=== PATIENT | male | born 1955 | race Caucasian/White ===

== ENCOUNTER → 2016-07-03 | Outpatient (CLI) | payer OTHER ==
[2016-07-03 11:31] LABS: Basophils # (A) 0.1 k/uL (0-0.2); Basophils % (A) 2 %; CH 30.4; CHCM 33.5; Eosinophils # (A) 0.4 k/uL (0-0.7); Eosinophils % (A) 5 %; HCT 46.7 % (39.0-53.0); HDW 2.49; HGB 15.3 gm/dL (13.0-17.5); Luc # (Auto) 0.11; Luc % (Auto) 1; Lymphocytes % (A) 24 %; MCHC 32.9 g/dL (31.0-37.0); MCV 91.2 fL (80.0-100.0); Mean Platelet Volume 7.5; Monocytes # (A) 0.6 k/uL (0-1.0); Monocytes % (A) 7 %; Neutrophils % (A) 61 %; RBC 5.11 m/uL (4.30-5.90); RDW 12.6 % (11.5-15.5); WBC 8.2 k/uL (3.8-10.6); WBC (Perox) 8.48
[2016-07-03 11:56] LABS: ALT 50 U/L (21-72); AST 30 U/L (17-59); Alkaline Phosphatase 65 U/L (38-126); Anion Gap 12 mmol/L; Blood Urea Nitrogen 17 mg/dL (9-20); Calcium 9.7 mg/dL (8.4-10.2); Carbon Dioxide 30 mmol/L (22-30); Chloride 102 mmol/L (98-107); Cholesterol 147 mg/dL (<200); Glucose 94 mg/dL (74-99); HDL Cholesterol 44 mg/dL (40-60); Non-African American GFR(MDRD) >60 (>60 ml/min/1.73 sqM); Potassium 4.6 mmol/L (3.5-5.1); Sodium 144 mmol/L (137-145); Total Bilirubin 0.8 mg/dL (0.2-1.3); Total Protein 6.9 g/dL (6.3-8.2); Triglycerides 90 mg/dL (<150)
== END | disposition home or self-care (01) ==
LOC: LABWHC1 10:38
PROVIDERS: ATTEND Internal Medicine
DX: L10.1 Pemphigus vegetans (principal); E78.5 Hyperlipidemia, unspecified
CPT/HCPCS: 36415; 80053; 80061; 84439; 84443; 85025

== ENCOUNTER → 2017-08-22 | Outpatient (CLI) | payer OTHER ==
[2017-08-22 12:21] LABS: Basophils # (A) 0.1 k/uL (0-0.2); Basophils % (A) 1 %; Eosinophils # (A) 0.2 k/uL (0-0.7); Eosinophils % (A) 3 %; HGB 16.1 gm/dL (13.0-17.5); Lymphocytes # (A) 2.1 k/uL (1.0-4.8); Lymphocytes % (A) 26 %; MCH 30.4 pg (25.0-35.0); MCHC 33.6 g/dL (31.0-37.0); MCV 90.3 fL (80.0-100.0); Mean Platelet Volume 6.7; Monocytes # (A) 0.4 k/uL (0-1.0); Monocytes % (A) 5 %; Neutrophils # (A) 5.2 k/uL (1.3-7.7); Neutrophils % (A) 63 %; Platelet Count 271 k/uL (150-450); RBC 5.31 m/uL (4.30-5.90); RDW 12.6 % (11.5-15.5); WBC 8.3 k/uL (3.8-10.6)
[2017-08-22 12:29] LABS: ALT 43 U/L (21-72); AST 24 U/L (17-59); Albumin 4.3 g/dL (3.5-5.0); Alkaline Phosphatase 63 U/L (38-126); Anion Gap 9 mmol/L; Bilirubin, Delta 0.3 mg/dL (0.0-0.2); Bilirubin,Unconjugated 0.3 mg/dL (0.0-1.1); Blood Urea Nitrogen 16 mg/dL (9-20); Carbon Dioxide 32 mmol/L (22-30); Chloride 102 mmol/L (98-107); Cholesterol 158 mg/dL (<200); Glucose 92 mg/dL (74-99); HDL Cholesterol 50 mg/dL (40-60); LDL Cholesterol,Calculated 85 mg/dL (0-99); Potassium 4.5 mmol/L (3.5-5.1); Sodium 143 mmol/L (137-145); Total Bilirubin 0.6 mg/dL (0.2-1.3); Total Protein 6.8 g/dL (6.3-8.2); Triglycerides 114 mg/dL (<150)
[2017-08-22 12:46] LABS: T4, Free (Free Thyroxine) 0.78 ng/dL (0.78-2.19)
[2017-08-22 12:59] LABS: PSA Annual Screen 3.31 ng/mL (0.00-4.00)
== END | disposition home or self-care (01) ==
LOC: LABWHC1 11:31
PROVIDERS: ATTEND Internal Medicine
DX: E78.5 Hyperlipidemia, unspecified (principal); I10 Essential (primary) hypertension; J45.20 Mild intermittent asthma, uncomplicated
CPT/HCPCS: 84439; 80061; 80053; 82248; 85025; 82306; 36415; G0103

== ENCOUNTER → 2018-01-07 | Outpatient (CLI) | payer OTHER | END | disposition home or self-care (01) | LOC: LABWHC1 09:08 | PROVIDERS: ATTEND Urology | DX: R97.20 Elevated prostate specific antigen [PSA] (principal) | CPT/HCPCS: 36415; 84153 ==

== ENCOUNTER 2018-03-12 08:47 | Day surgery (SDC) | payer OTHER ==
[2018-03-11 08:27] VITALS: BMI 35.4
[~2018-03-12 08:47] MED LIST: LACTATED RINGERS 1,000 ML IV SCH; LIDOCAINE 1% 20 ML VIAL (10MG/ML) FOR IV START INTRADERMA PRN
[2018-03-12 09:32] VITALS: RESP 18; TEMP 97.7
[2018-03-12] MEDS ORDERED: fentaNYL (PF) 50 MCG/ML 2 ML AMP ONE (10:14)
[2018-03-12] MEDS ORDERED: PROPOFOL 10 MG/ML 20 ML VIAL IV ONE (10:14)
[2018-03-12] MEDS ORDERED: LIDOCAINE 1% INJ 10MG/ML (20 ML MDV) ONE (10:14)
--- NOTE | 2018-03-12 10:50 | P.PCN ---
Date of Procedure: 03/12/18 Procedure(s) Performed: Procedure: Colonoscopy and polypectomy. Preoperative diagnosis: Screening for neoplasia. Postoperative diagnosis: Small flat cecal polyp snared but no large polyps or cancer. Preparation: HalfLytely prep. Sedation: Was provided by anesthesia. Brief clinical history: The patient is a 62-year-old male who is scheduled for this evaluation for screening for neoplasia age being his risk factor. He had a prior exam more than 10 years ago. The patient has no abdominal complaints, bleeding or anemia. Procedure: With the patient on his left lateral decubitus position and after informed consent and adequate sedation, the perianal area was inspected and it did not show any fissures or fistulas. There were no masses felt on digital rectal examination. The Olympus CFQ 160L video colonoscope was then inserted in the rectum in the usual fashion and advanced to the cecum. There was a small flat polyp in the cecum which was snared and retrieved piecemeal with good hemostasis. There were no other polyps or tumors seen. Multiple diverticular orifices were seen scattered mostly on the left side with some around the hepatic flexure with no evidence of acute diverticulitis or strictures. I retroflexed the endoscope in the rectum before the endoscope was withdrawn. The patient tolerated the procedure well. Plan: The patient was reassured. Will await pathology results. I anticipate repeating this exam in 3-5 years. He will follow up with you as planned.
[2018-03-12 11:05] VITALS: BP 135/79; PULSE 57
== END 2018-03-12 11:31 | disposition home or self-care (01) ==
LOC: ORWHC2ENDO 08:47
DX: Z12.11 Encounter for screening for malignant neoplasm of colon (principal); D12.0 Benign neoplasm of cecum; K57.30 Diverticulosis of large intestine without perforation or abscess without bleeding; I10 Essential (primary) hypertension; E78.5 Hyperlipidemia, unspecified; Z79.82 Long term (current) use of aspirin; Z79.899 Other long term (current) drug therapy
CPT/HCPCS: 88305; 45385; J2001; J3010; J2704

== ENCOUNTER → 2018-09-20 | Outpatient (CLI) | payer OTHER ==
[2018-09-20 14:30] LABS: Basophils # (A) 0.1 k/uL (0-0.2); Basophils % (A) 1 %; Eosinophils # (A) 0.3 k/uL (0-0.7); Eosinophils % (A) 3 %; HCT 46.6 % (39.0-53.0); HGB 15.6 gm/dL (13.0-17.5); Lymphocytes # (A) 1.8 k/uL (1.0-4.8); Lymphocytes % (A) 22 %; MCHC 33.5 g/dL (31.0-37.0); MCV 89.7 fL (80.0-100.0); Mean Platelet Volume 7.2; Monocytes # (A) 0.6 k/uL (0-1.0); Monocytes % (A) 7 %; Neutrophils # (A) 5.1 k/uL (1.3-7.7); Neutrophils % (A) 64 %; Platelet Count 270 k/uL (150-450); RBC 5.19 m/uL (4.30-5.90)
[2018-09-20 18:29] LABS: Albumin 4.9 g/dL (3.80-4.90); Albumin/Globulin Ratio 2.58 (1.60-3.17); Anion Gap 4.1 mmol/L (4.00-12.00); Calcium 9.9 mg/dL (8.7-10.3); Carbon Dioxide 30.9 mmol/L (21.6-31.8); Globulin 1.9 g/dL (1.6-3.3); LDL Cholesterol,Calculated 81.4 mg/dL (0.0-131.0); Potassium 4.1 mmol/L (3.5-5.5); Total Bilirubin 0.8 mg/dL (0.3-1.2); Total Protein 6.8 g/dL (6.2-8.2); VLDL Calculation 19.6 mg/dL (5.00-40.00)
[2018-09-20 18:35] LABS: T4, Free (Free Thyroxine) 1.4 ng/dL (0.80-1.80)
== END | disposition home or self-care (01) ==
LOC: LABWHC1 13:17
PROVIDERS: ATTEND Internal Medicine
DX: Z00.00 Encounter for general adult medical examination without abnormal findings (principal); E55.9 Vitamin D deficiency, unspecified; E78.5 Hyperlipidemia, unspecified; Z12.5 Encounter for screening for malignant neoplasm of prostate
CPT/HCPCS: 84439; 80061; 80053; 84443; 85025; 36415; G0103

== ENCOUNTER → 2019-02-01 | Outpatient (CLI) | payer OTHER ==
--- NOTE | 2019-02-01 14:52 | CT ---
EXAMINATION TYPE: CT chest w con DATE OF EXAM: 02/01/2019 COMPARISON: None HISTORY: Follow up pneumonia, cough CT DLP: 565.6 mGycm Automated exposure control for dose reduction was used. CONTRAST: CT scan of the chest is performed with IV Contrast, patient injected with 100 mL of Isovue 300. FINDINGS: There is a reticular nodular peripheral infiltrate lateral aspect right upper lobe with calcification . There are multiple calcified mediastinal and right side bronchial lymph nodes. There is a 7 x 3.5 cm area of airspace consolidation and minimal cavitation in the posterior segment right lower lobe. There is no pleural effusion. There is no pericardial effusion. Heart size is david l. There is coronary artery calcification. There is no evidence of thoracic aortic aneurysm or dissec tion. There is slight loss of height of T9 and T11 vertebra consistent with osteoporosis. Upper abdom inal soft tissues appear intact. IMPRESSION: Cavitating infiltrate right lower lobe with calcification. Old granulomatous disease. Nicki ng findings more likely related to inflammatory disease. Follow-up recommended to show long-term stab ility or clearing.
== END | disposition home or self-care (01) ==
LOC: RADCTMAIN 13:41
PROVIDERS: ATTEND Internal Medicine
DX: J98.4 Other disorders of lung (principal); D71 Functional disorders of polymorphonuclear neutrophils; R91.8 Other nonspecific abnormal finding of lung field
CPT/HCPCS: 71260; Q9967

== ENCOUNTER → 2020-03-30 | Outpatient (CLI) | payer OTHER ==
[2020-03-30 16:19] LABS: Basophils # (A) 0.1 k/uL (0-0.2); Basophils % (A) 1 %; Eosinophils # (A) 0.4 k/uL (0-0.7); Eosinophils % (A) 3 %; HCT 49.2 % (39.0-53.0); HGB 16.1 gm/dL (13.0-17.5); Lymphocytes # (A) 2.7 k/uL (1.0-4.8); Lymphocytes % (A) 21 %; MCH 30.7 pg (25.0-35.0); MCHC 32.8 g/dL (31.0-37.0); MCV 93.5 fL (80.0-100.0); Mean Platelet Volume 6.8; Monocytes # (A) 0.5 k/uL (0-1.0); Monocytes % (A) 4 %; Neutrophils # (A) 8.9 k/uL (1.3-7.7); Neutrophils % (A) 69 %; Platelet Count 333 k/uL (150-450); RBC 5.26 m/uL (4.30-5.90); RDW 12.3 % (11.5-15.5); WBC 12.8 k/uL (3.8-10.6)
[2020-03-31 05:07] LABS: T4, Free (Free Thyroxine) 1.2 ng/dL (0.80-1.80)
[2020-03-31 05:22] LABS: African American GFR (CKD) 105.7 (60.0-200.0); Albumin/Globulin Ratio 2.63 (1.60-3.17); Anion Gap 15.4 mmol/L (4.00-12.00); BUN/Creat Ratio 12.22 Ratio (12.00-20.00); Carbon Dioxide 23.6 mmol/L (21.6-31.8); Chol/HDL Ratio 3.63; Globulin 1.9 g/dL (1.6-3.3); LDL Cholesterol,Calculated 63.8 mg/dL (0.0-131.0); Non-African American GFR(CKD) 91.2 (60.0-200.0); Potassium 4.5 mmol/L (3.5-5.5); Prostate Specific Antigen 7.8 ng/mL (0.0-4.5); Total Bilirubin 0.5 mg/dL (0.3-1.2); Total Protein 6.9 g/dL (6.2-8.2); VLDL Calculation 36.2 mg/dL (5.00-40.00)
== END | disposition home or self-care (01) ==
LOC: LABWHC1 14:41
PROVIDERS: ATTEND Internal Medicine
DX: Z00.00 Encounter for general adult medical examination without abnormal findings (principal)
CPT/HCPCS: 36415; 80053; 80061; 84153; 84439; 84443; 85025

== ENCOUNTER → 2020-05-17 | Outpatient (CLI) | payer OTHER | END | disposition home or self-care (01) | LOC: LABWHC1 12:51 | PROVIDERS: ATTEND Urology | DX: R97.20 Elevated prostate specific antigen [PSA] (principal) | CPT/HCPCS: 36415; 84153 ==

== ENCOUNTER → 2020-07-13 | Outpatient (CLI) | payer OTHER ==
--- NOTE | 2020-07-13 14:42 | MR ---
EXAMINATION TYPE: MR pelvis wo con DATE OF EXAM: 07/13/2020 COMPARISON: None. IMAGE QUALITY: Suboptimal but repeat not required. INDICATION: High PSA Level PSA: 7.7 ng/ml on May 17, 2020 Recent Biopsy and Date: March 21, 2018 Pathology Report (If Applicable): Benign TECHNIQUE: Examination was performed using a 3T MRI without an endorectal coil. Multiparametric imaging was perf ormed with T2 mutliplanar sequences, axial diffusion weighted imaging and dynamic contrast enhanced i maging, utilizing 11 mL intravenous Gadavist gadolinium contrast. FINDINGS: Examination is suboptimal as patient unable to complete entire MRI sequence for prostate ev aluation. Incomplete diffusion along with postcontrast imaging. There is no clinically significant cancer identified. PROSTATE VOLUME: 5.2 cm SI x 5.0 cm AP x 6.1 cm LR Vol= 83.0 cc PSA DENSITY: 0.093 ng/ml/cc Predicted PSA equals 9.96 Some indistinct hypointense areas in the peripheral zone right prostatic lobe more medial aspect from base to apex. No areas of mild to moderate hypointensity or obvious restricted diffusion. Asymmetric increased prominence of the left peripheral zone diffusely greatest mid zone aspect. Transitional zone shows heterogeneity with single encapsulated 1.4 cm nodule left apex image 13. No s uspicious regions of more prominent low T2 signal. Prostate capsule intact. Seminal vesicles within normal limits. No adjacent adenopathy. Mild to moderate trabeculation and mild wall thickening in the poorly distended bladder. No suspiciou s bowel dilatation. Moderate-sized fat-containing left inguinal hernia. Visualized osseous structures are intact. IMPRESSION: Suboptimal study. Markedly enlarged prostate consistent with BPH. A focus of clinically significant cancer is not identified. Highest Assessment Category: 2 MRI Stage: T0 N0 M0 based on review of pelvic images. False negative rates for MRI range from 5-20% depending on risk profile. Assessment Categories: 1 Very low (clinically significant cancer is highly unlikely to be present) 2 Low (clinically significant cancer is unlikely to be present) 3 Intermediate (the presence of clinically significant cancer is equivocal) 4 High (clinically significant cancer is likely to be present) 5 Very high (clinically significant cancer is highly likely to be present) Locations: PZ = peripheral zone; TZ = transition zone CZ=central zone; AFS = anterior fibromuscular stroma a=anterior half (i.e. PZa=anterior half of peripheral zone); pm= posterior medial (i.e PZpm) pl = postero-lateral (i.e. PZpl); p = posterior half (i.e. TZp) ; a = anterior half (i.e TZa or P Za) Other: N=no or no; E= equivocal; Y=yes EPE = extraprostatic extension NVB = neurovascular bundle NA = not applicable/not available
== END | disposition home or self-care (01) ==
LOC: RADMRIMAIN 11:46
PROVIDERS: ATTEND Urology
DX: N40.0 Benign prostatic hyperplasia without lower urinary tract symptoms (principal)
CPT/HCPCS: 72195

== ENCOUNTER → 2020-09-28 | Outpatient (CLI) | payer OTHER | END | disposition home or self-care (01) | LOC: LABWHC1 12:36 | PROVIDERS: ATTEND Urology | DX: R97.20 Elevated prostate specific antigen [PSA] (principal) | CPT/HCPCS: 36415; 84153 ==

== ENCOUNTER → 2021-03-16 | Outpatient (CLI) | payer OTHER | END | disposition home or self-care (01) | LOC: LABWHC1 12:00 | PROVIDERS: ATTEND Urology | DX: R97.20 Elevated prostate specific antigen [PSA] (principal) | CPT/HCPCS: 36415; 84153 ==

== ENCOUNTER → 2021-05-25 | Outpatient (CLI) | payer OTHER ==
[2021-05-25 19:08] LABS: Basophils # (A) 0.04 X 10*3/uL (0.00-0.10); Basophils % (A) 0.6 %; Eosinophils # (A) 0.55 X 10*3/uL (0.04-0.35); HCT 48.1 % (39.6-50.0); HGB 15.4 g/dL (13.0-17.0); Lymphocytes # (A) 1.94 X 10*3/uL (0.90-5.00); Lymphocytes % (A) 28.1 %; MCH 30.1 pg (27.0-32.0); MCV 93.9 fL (80.0-97.0); Mean Platelet Volume 9.9 fL (9.5-12.2); Monocytes # (A) 0.85 X 10*3/uL (0.20-1.00); Monocytes % (A) 12.3 %; Neutrophils % (A) 50.6 %; Platelet Count 241 X 10*3/uL (140-440); RBC 5.12 X 10*6/uL (4.40-5.60); RDW 12.5 % (11.5-14.5); WBC 6.91 X 10*3/uL (4.50-10.00)
[2021-05-25 20:49] LABS: ALT 32 U/L (10-49); AST 22 U/L (14-35); African American GFR (CKD) 92.4 (60.0-200.0); Albumin 4.7 g/dL (3.8-4.9); Albumin/Globulin Ratio 2.14 (1.60-3.17); Alkaline Phosphatase 82 U/L (41-126); Calcium 9.8 mg/dL (8.7-10.3); Carbon Dioxide 25.8 mmol/L (20.0-27.5); Chloride 101 mmol/L (96-109); Chol/HDL Ratio 4.09 Ratio; Globulin 2.2 g/dL (1.6-3.3); Glucose 88 mg/dL (70-110); LDL Cholesterol,Calculated 81.8 mg/dL (0.0-131.0); Non-African American GFR(CKD) 79.7 (60.0-200.0); Potassium 3.8 mmol/L (3.5-5.5); Sodium 140 mmol/L (135-145); Total Protein 6.9 g/dL (6.2-8.2)
== END | disposition home or self-care (01) ==
LOC: LABWHC1 11:21
PROVIDERS: ATTEND Internal Medicine
DX: Z00.00 Encounter for general adult medical examination without abnormal findings (principal); J45.20 Mild intermittent asthma, uncomplicated; E78.5 Hyperlipidemia, unspecified; I10 Essential (primary) hypertension
CPT/HCPCS: 84439; 80061; 80053; 84443; 85025; 36415; G0103

== ENCOUNTER → 2021-11-10 | Outpatient (CLI) | payer OTHER | END | disposition home or self-care (01) | LOC: LABWHC1 10:38 | PROVIDERS: ATTEND Urology | DX: R97.20 Elevated prostate specific antigen [PSA] (principal) | CPT/HCPCS: 36415; 84153 ==

== ENCOUNTER 2021-11-24 08:54 | Day surgery (SDC) | payer OTHER ==
[2021-11-23 08:27] VITALS: BMI 34.1
[2021-11-24] MEDS ORDERED: LACTATED RINGERS 1,000 ML IV SCH (09:09)
[2021-11-24] MEDS ORDERED: LIDOCAINE 1% (10MG/ML) FOR IV START INTRADERMA ONE (09:15)
[2021-11-24 09:16] VITALS: TEMP 98.2
[2021-11-24] MEDS ORDERED: PROPOFOL 10 MG/ML 20 ML VIAL IV ONE (09:42)
--- NOTE | 2021-11-24 09:44 | P.GSHP ---
History of Present Illness H&P Date: 11/24/21 Chief Complaint: History of colon polyps This a 66-year-old male with previous history of colon polyps. Patient presents today for colonoscopy. Past Medical History Past Medical History: Hyperlipidemia, Hypertension, Prostate Disorder Additional Past Medical History / Comment(s): psa elevated History of Any Multi-Drug Resistant Organisms: None Reported Past Surgical History: Hernia Repair, Orthopedic Surgery Additional Past Surgical History / Comment(s): RIGHT AND LEFT KNEE ARTHROSCOPIC , INGUINAL HERNIA REPAIR BILATERAL , prostate biopsy, partial rt lower lung lobectomy Past Anesthesia/Blood Transfusion Reactions: No Reported Reaction Smoking Status: Never smoker - Past Family History Mother Family Medical History: Cancer Additional Family Medical History / Comment(s): ovarian Medications and Allergies Home Medications Medication Instructions Recorded Confirmed Type Atorvastatin [Lipitor] 20 mg PO DAILY 03/11/18 11/23/21 History Lisinopril-Hctz 20-12.5 mg 1 tab PO DAILY 03/11/18 11/23/21 History [Zestoretic 20-12.5] Multivitamins, Thera [Multivitamin 1 tab PO DAILY 03/11/18 11/23/21 History (formulary)] Zinc 50 mg PO DAILY 11/23/21 11/23/21 History Allergies Allergy/AdvReac Type Severity Reaction Status Date / Time No Known Allergies Allergy Verified 11/23/21 08:16 Surgical - Exam Vital Signs Temp Pulse Resp BP Pulse Ox 98.2 F 70 16 159/91 97 11/24/21 09:14 11/24/21 09:14 11/24/21 09:14 11/24/21 09:14 11/24/21 09:14 - General well developed, well nourished, no distress - Eyes PERRL - ENT normal pinna - Neck no masses - Respiratory normal expansion - Cardiovascular Rhythm: regular - Abdomen Abdomen: soft, non tender Assessment and Plan Assessment: History of colon polyps. We'll perform colonoscopy.
--- NOTE | 2021-11-24 09:58 | P.OP ---
Date of Procedure: 11/24/21 Preoperative Diagnosis: Screening colonoscopy History of colon polyps Postoperative Diagnosis: Diverticulosis Procedure(s) Performed: Colonoscopy Anesthesia: MAC Surgeon: Rik Guzman Pathology: none sent Condition: stable Disposition: PACU Description of Procedure: The patient's placed on the endoscopy table in the lateral position. He received IV sedation. Digital rectal exam was performed which revealed no ebonized. Flexible colonoscope was then placed patient anus passed throughout the entire colon. The ileocecal valve was visualized. Cecum, ascending and transverse colon appeared normal. In the descending and sigmoid colon there was moderate diverticular changes. The scope was then brought back the rectum this appeared normal. Scope withdrawn for patient.
[2021-11-24 10:15] VITALS: BP 127/65; PULSE 59; RESP 17
== END 2021-11-24 10:33 | disposition home or self-care (01) ==
LOC: ORWHC2ENDO 08:54
PROVIDERS: ATTEND Surgery
DX: Z12.11 Encounter for screening for malignant neoplasm of colon (principal); K57.30 Diverticulosis of large intestine without perforation or abscess without bleeding; Z86.010 Personal history of colon polyps; E78.5 Hyperlipidemia, unspecified; I10 Essential (primary) hypertension; R97.20 Elevated prostate specific antigen [PSA]; Z90.2 Acquired absence of lung [part of]; Z98.890 Other specified postprocedural states; Z80.41 Family history of malignant neoplasm of ovary; Z79.899 Other long term (current) drug therapy
CPT/HCPCS: J2704; G0105

== ENCOUNTER → 2022-05-17 | Outpatient (CLI) | payer OTHER | END | disposition home or self-care (01) | LOC: LABWHC1 10:47 | PROVIDERS: ATTEND Urology | DX: R97.20 Elevated prostate specific antigen [PSA] (principal) | CPT/HCPCS: 36415; 84153 ==

== ENCOUNTER → 2022-05-26 | Outpatient (CLI) | payer OTHER ==
[2022-05-26 19:18] LABS: ALT 31 U/L (10-49); AST 27 U/L (14-35); African American GFR (CKD) 104.2 (60.0-200.0); Albumin 4.8 g/dL (3.8-4.9); Albumin/Globulin Ratio 2.09 (1.60-3.17); Alkaline Phosphatase 77 U/L (41-126); Blood Urea Nitrogen 12.6 mg/dL (9.0-27.0); Calcium 9.9 mg/dL (8.7-10.3); Carbon Dioxide 26.4 mmol/L (20.0-27.5); Chloride 103 mmol/L (96-109); Chol/HDL Ratio 3.15 Ratio; Globulin 2.3 g/dL (1.6-3.3); Glucose 93 mg/dL (70-110); LDL Cholesterol,Calculated 73.4 mg/dL (0.0-131.0); Non-African American GFR(CKD) 89.9 (60.0-200.0); Potassium 4.3 mmol/L (3.5-5.5); Sodium 141 mmol/L (135-145); Total Protein 7.1 g/dL (6.2-8.2)
[2022-05-26 20:10] LABS: Basophils # (A) 0.08 X 10*3/uL (0.00-0.10); Eosinophils % (A) 4.9 %; HCT 48.3 % (39.6-50.0); HGB 15.8 g/dL (13.0-17.0); Immature Grans, Automated 0.5 %; Lymphocytes % (A) 26.7 %; MCH 30.6 pg (27.0-32.0); MCHC 32.7 g/dL (32.0-37.0); MCV 93.6 fL (80.0-97.0); Mean Platelet Volume 10.1 fL (9.5-12.2); Monocytes % (A) 8.5 %; NRBC Per 100 WBC 0 /100 WBCS (0.0-0.0); Neutrophils # (A) 4.82 X 10*3/uL (1.80-7.70); Neutrophils % (A) 58.4 %; Platelet Count 278 X 10*3/uL (140-440); RBC 5.16 X 10*6/uL (4.40-5.60); RDW 12.6 % (11.5-14.5); WBC 8.24 X 10*3/uL (4.50-10.00)
== END | disposition home or self-care (01) ==
LOC: LABWHC1 12:07
PROVIDERS: ATTEND Internal Medicine
DX: I10 Essential (primary) hypertension (principal); E78.3 Hyperchylomicronemia; E78.5 Hyperlipidemia, unspecified
CPT/HCPCS: 36415; 80053; 80061; 84439; 84443; 85025

== ENCOUNTER 2022-11-08 23:51 | Emergency (ER) | payer OTHER ==
[2022-11-09 00:08] VITALS: BP 136/82; PULSE 79; RESP 18; TEMP 98.2
[2022-11-09] MEDS ORDERED: CEPHALEXIN 500 MG CAP PO STA (01:52)
[2022-11-09] MEDS ORDERED: DIPH,PERTUS(ACELL)TETVAC-LF 0.5 ML VIAL IM ONE (01:52)
[2022-11-09] MEDS ORDERED: BACITRACIN OINT 1 EACH PACKET TOPICAL ONE (01:55)
--- NOTE | 2022-11-09 02:00 | ED ---
Skin/Abscess/FB HPI - General Chief complaint: Skin/Abscess/Foreign Body Stated complaint: Spider Bite Time Seen by Provider: 11/09/22 01:39 Source: patient, family (), RN notes reviewed, old records reviewed Mode of arrival: ambulatory Limitations: no limitations - History of Present Illness Initial comments: Nontoxic-appearing 67-year-old male presents to the emergency room with his complaining of a possible insect bite behind his right knee that he sustained Sunday night while sleeping. Patient did not see an insect. Over the past fe w days he's had increased swelling and tenderness. His because it this morning and prompted him to come to the emergency room. Denies any other bites or rashes. Unsure of his tetanus shot is up-to-date. History of hypertension. MD complaint: insect bite/sting -: days(s) (5) Tetanus Up to Date: no Location: RLE (posterior knee) Severity scale (1-10): 1 Context: recent camping ([place]) Associated symptoms: denies other symptoms Treatments Prior to Arrival: none - Related Data Home Medications Medication Instructions Recorded Confirmed Atorvastatin [Lipitor] 20 mg PO DAILY 03/11/18 11/23/21 Lisinopril-Hctz 20-12.5 mg 1 tab PO DAILY 03/11/18 11/23/21 [Zestoretic 20-12.5] Multivitamins, Thera [Multivitamin 1 tab PO DAILY 03/11/18 11/23/21 (formulary)] Zinc 50 mg PO DAILY 11/23/21 11/23/21 Previous Rx's Medication Instructions Recorded Cephalexin [Keflex] 500 mg PO Q6HR #40 cap 11/09/22 Allergies Allergy/AdvReac Type Severity Reaction Status Date / Time No Known Allergies Allergy Verified 11/09/22 00:07 Review of Systems ROS Statement: Those systems with pertinent positive or pertinent negative responses have been documented in the HPI. ROS Other: All systems not noted in ROS Statement are negative. Past Medical History Past Medical History: Hyperlipidemia, Hypertension Additional Past Medical History / Comment(s): psa elevated History of Any Multi-Drug Resistant Organisms: None Reported Past Surgical History: Hernia Repair Additional Past Surgical History / Comment(s): RIGHT AND LEFT KNEE ARTHROSCOPIC , INGUINAL HERNIA REPAIR BILATERAL Past Anesthesia/Blood Transfusion Reactions: No Reported Reaction Past Psychological History: No Psychological Hx Reported Smoking Status: Never smoker Past Alcohol Use History: Occasional Past Drug Use History: None Reported - Past Family History Mother Family Medical History: Cancer Additional Family Medical History / Comment(s): ovarian General Exam Limitations: no limitations General appearance: alert, in no apparent distress Head exam: Present: atraumatic Eye exam: Present: normal appearance. Absent: scleral icterus, conjunctival injection, periorbital swelling ENT exam: Present: mucous membranes moist Neck exam: Absent: meningismus Respiratory exam: Absent: respiratory distress, accessory muscle use Cardiovascular Exam: Present: regular rate Extremities exam: Present: full ROM, normal capillary refill. Absent: pedal edema, calf tenderness Neurological exam: Present: alert, oriented X3, normal gait Psychiatric exam: Present: normal affect, normal mood Skin exam: Present: warm, dry, normal color, other (lesion approx 2cm right popliteal fossa with surrounding erythema approximately 7 cm x 3 cm). Absent: cyanosis, diaphoretic, petechiae, pallor Course Vital Signs 11/09/22 00:07 Temperature 98.2 F Pulse Rate 79 Respiratory 18 Rate Blood Pressure 136/82 O2 Sat by Pulse 96 Oximetry Medical Decision Making - Medical Decision Making Was pt. sent in by a medical professional or institution (, PA, SCRIPT WRITER, urgent care, hospital, or residential...) When possible be specific @ -No Did you speak to anyone other than the patient for history (EMS, parent, family, police, friend...)? What history was obtained from this source @ -No Did you review nursing and triage notes (agree or disagree)? Why? @ -I reviewed and agree with nursing and triage notes Were old charts reviewed (outside hosp., previous admission, EMS record, old EKG, old radiological studies, urgent care reports/EKG's, residential records)? Report findings @ -No old charts were reviewed Differential Diagnosis (chest pain, altered mental status, abdominal pain women, abdominal pain men, vaginal bleeding, weakness, fever, dyspnea, syncope, headache, dizziness, GI bleed, back pain, seizure, CVA, palpatations, mental health, musculoskeletal)? @ -Cellulitis, abscess, laceration, abrasion EKG interpreted by me (3pts min.). @ -n/a X-rays interpreted by me (1pt min.). @ -None done CT interpreted by me (1pt min.). @ -None done U/S interpreted by me (1pt. min.). @ -None done What testing was considered but not performed or refused? (CT, X-rays, U/S, labs)? Why? @ -None What meds were considered but not given or refused? Why? @ -None Did you discuss the management of the patient with other professionals (professionals i.e. DrMigue, PA, SCRIPT WRITER, lab, RT, psych nurse, social research assistant, it systems administrator, teacher, parking enforcement officer, insurance case manager)? Give summary @ -No Was smoking cessation discussed for >3mins.? @ -No Was critical care preformed (if so, how long)? @ -No Were there social determinants of health that impacted care today? How? (Homelessness, low income, unemployed, alcoholism, drug addiction, transportation, low edu. Level, literacy, decrease access to med. care, [facility], rehab)? @ -No Was there de-escalation of care discussed even if they declined (Discuss DNR or withdrawal of care, Hospice)? DNR status @ -No What co-morbidities impacted this encounter? (DM, HTN, Smoking, COPD, CAD, Cancer, CVA, ARF, Chemo, Hep., AIDS, mental health diagnosis, sleep apnea, morbid obesity)? @ -Hyperlipidemia, hypertension Was patient admitted / discharged? Hospital course, mention meds given and route, prescriptions, significant lab abnormalities, going to OR and other pertinent info. @ -Discharged Nontoxic-appearing 67-year-old male presents ambulatory with his complaining of a possible insect bite behind his right knee that he sustained Sunday night while sleeping in [place]. Patient did not see an insect. Over the past few days he's had increased swelling and tenderness. Denies any fevers. Wound culture was obtained. Wound with surrounding erythema was outlined with skin marker and patient and were advised to return with any spreading of the redness. Patient tetanus shot was updated this visit. He was given a dose of Keflex. Bacitracin dressing was applied. He was prescribed Keflex and directed to place bacitracin ointment once a day and lesion. Directed to return to the emergency room with any increased swelling or fevers. Follow-up with his primary care doctor on Sunday. Patient are agreeable to this plan of care. Case discussed with Dr. Eid Undiagnosed new problem with uncertain prognosis? @ -No Drug Therapy requiring intensive monitoring for toxicity (Heparin, Nitro, Insulin, Cardizem)? @ -No Were any procedures done? @ -No Diagnosis/symptom? @ -Cellulitis Acute, or Chronic, or Acute on Chronic? @ -Acute Uncomplicated (without systemic symptoms) or Complicated (systemic symptoms)? @ -Uncomplicated Side effects of treatment? @ -No Exacerbation, Progression, or Severe Exacerbation? @ -No Poses a threat to life or bodily function? How? (Chest pain, USA, CT, pneumonia, PE, COPD, DKA, ARF, appy, cholecystitis, CVA, Diverticulitis, Homicidal, Suicidal, threat to staff... and all critical care pts) @ -No Disposition Clinical Impression: Cellulitis of leg, right Disposition: HOME SELF-CARE Condition: Good Additional Instructions: If the redness spreads past the outlined marker and or you develop a fever, return to the emergency room. Take antibiotics as prescribed. Follow-up with your primary care doctor Sunday. Prescriptions: Cephalexin [Keflex] 500 mg PO Q6HR #40 cap Is patient prescribed a controlled substance at d/c from ED?: No Referrals: Eleanor Mtz MD [Primary Care Provider] - 1-2 days Time of Disposition: 01:59
== END 2022-11-09 02:27 | disposition home or self-care (01) ==
LOC: EC 23:51
DX: L03.115 Cellulitis of right lower limb (principal); I10 Essential (primary) hypertension; E78.5 Hyperlipidemia, unspecified; Z79.899 Other long term (current) drug therapy; W57.XXXA Bitten or stung by nonvenomous insect and other nonvenomous arthropods, initial encounter
CPT/HCPCS: 87070; 87077; 87186; 87205; 90715; 99283

== ENCOUNTER → 2023-03-14 | Outpatient (CLI) | payer MEDICARE, OTHER | END | disposition home or self-care (01) | LOC: LABWHC1 12:09 | PROVIDERS: ATTEND Urology | DX: R97.20 Elevated prostate specific antigen [PSA] (principal) | CPT/HCPCS: 36415; 84153 ==

== ENCOUNTER → 2023-06-07 | Outpatient (CLI) | payer MEDICARE, OTHER ==
--- NOTE | 2023-06-08 09:36 | XR ---
EXAMINATION TYPE: XR chest 2V, XR ribs LT DATE OF EXAM: 06/07/2023 5:47 PM CLINICAL INDICATION:Male, 67 years old with history of R07.9; COMPARISON: Chest radiographs from 03/30/2022. TECHNIQUE: XR chest 2V, XR ribs LT Frontal and lateral views of the chest. The ribs are evaluated in frontal and oblique views. FINDINGS: Lungs/Pleura: There is flattening of the diaphragm with increased lucency of the lungs. No evidence o f pneumothorax, pleural effusion or focal consolidation. Pulmonary vascularity: Unremarkable. Heart/mediastinum: Cardiomediastinal silhouette is unremarkable. Musculoskeletal: No acute osseous pathology. Suboptimal visualization of the ribs secondary to overla pping tissues. No obvious displaced fracture visualized. IMPRESSION: 1. No acute cardiopulmonary disease/process. 2. COPD changes. 3. Limited evaluation due to patient body habitus. No obvious displaced fracture. Consider CT if the re remains concern.
== END | disposition home or self-care (01) ==
LOC: RADXRMAIN 17:32
PROVIDERS: ATTEND Family Medicine
DX: J44.9 Chronic obstructive pulmonary disease, unspecified (principal); R07.9 Chest pain, unspecified; R07.81 Pleurodynia
CPT/HCPCS: 71046

== ENCOUNTER → 2023-08-09 | Outpatient (CLI) | payer MEDICARE, OTHER ==
[2023-08-09 16:08] LABS: ALT 35 U/L (10-49); AST 22 U/L (14-35); Albumin 4.8 g/dL (3.8-4.9); Albumin/Globulin Ratio 2.18 Ratio (1.60-3.17); Alkaline Phosphatase 91 U/L (41-126); BUN/Creat Ratio 12.78 Ratio (12.00-20.00); Blood Urea Nitrogen 11.5 mg/dL (9.0-27.0); Calcium 10.5 mg/dL (8.7-10.3); Carbon Dioxide 27.4 mmol/L (21.6-31.8); Chloride 102 mmol/L (96-109); Chol/HDL Ratio 3.34 Ratio; Globulin 2.2 g/dL (1.6-3.3); Glucose 99 mg/dL (70-110); LDL Cholesterol,Calculated 74.8 mg/dL (0.0-131.0); Potassium 4.5 mmol/L (3.5-5.5); Sodium 142 mmol/L (135-145); Total Bilirubin 0.5 mg/dL (0.3-1.2)
== END | disposition home or self-care (01) ==
LOC: LABWHC1 09:42
PROVIDERS: ATTEND Internal Medicine Interventional Cardiology
DX: E78.2 Mixed hyperlipidemia (principal)
CPT/HCPCS: 36415; 80053; 80061

== ENCOUNTER → 2023-12-20 | Outpatient (CLI) | payer MEDICARE, OTHER | END | disposition home or self-care (01) | LOC: LABWHC1 12:46 | PROVIDERS: ATTEND Urology | DX: R97.20 Elevated prostate specific antigen [PSA] (principal) | CPT/HCPCS: 36415; 84153 ==

== ENCOUNTER → 2024-01-30 | Outpatient (CLI) | payer MEDICARE ==
--- NOTE | 2024-02-19 14:48 | P.PCN ---
Date of Procedure: 01/30/24 Operative Findings: Home sleep study report Date of service is 01/30/2024 Pertinent history This is a 68-year-old male patient who was referred to me for sleep apnea evaluation. The patient has chronic loud snoring and he is suffering from chronic fatigue and limited sleepiness with an [place] score of 3. He has Mallampati class IV with posterior is obese and suffers from hypertension hyperlipidemia. He is retired from [employer]. He is currently living in [place]. He is a non-smoker. Pertinent physical findings The patient's weight is 224 pounds with a body mass index of 34.1 Technical description The Angio[employer] ApneaLink system was used to complete his home sleep study. This is a type III home sleep study evaluation. The total recording duration was 7 hours and 32 minutes. The study started at 11:42 PM and ended at 7:15 AM. There was a total of 7 hours and 22 minutes of flow monitoring and 7 hours and 19 minutes of oxygen saturation monitoring and this was an adequate study Results Respiratory analysis showed a total of 15 obstructive apneas and 148 obstructive hypopneas. No central apneas were recorded and the patient's AHI was reported to be at 22.1, slightly worsened in supine body position Oxygenation analysis The patient's baseline pulse ox on room air while at rest is 95%. Average pulse ox during sleep was 92% with a minimum pulse ox of 85% during sleep. The patient spent approximately 12 minutes of sleep time below pulse ox of 89% Cardiac summary Average heart is was 63 with a minimum heart rate of 51 and a maximum heart of 89. Assessment Obstructive sleep apnea, moderate in severity with an AHI of 22, limited oxygen desaturation with a minimum pulse ox of 85% Chronic fatigue and limited sleepiness with an [place] score of 3 Hypertension Hyperlipidemia Obesity with a BMI of 34.1 Plan Will discuss findings with the patient. Obviously, in the setting of a moderate to severe obstructive sleep apnea, CPAP therapy is recommended. With supportive treatment for now and we asked the patient to come in sleep center to undergo a CPAP titration regarding further treatment of his MICKEY. Encourage weight loss. Continue cardiovascular comorbidities. Encourage maintaining a regular sleep schedule and good sleep hygiene measures. Will continue to follow.
== END ==
LOC: 3 N SLEEP 11:00
PROVIDERS: ATTEND Internal Medicine Critical Care Medicine

== ENCOUNTER 2024-02-19 19:48 | Outpatient (CLI) | payer MEDICARE, OTHER ==
--- NOTE | 2024-04-01 09:20 | P.PCN ---
Date of Procedure: 02/19/24 Operative Findings: CPAP titration report Date of service is 02/19/2024 Pertinent history This patient was diagnosed having obstructive sleep apnea, moderate in severity with an AHI of 22 with the lowest pulse ox of 85%. The patient has chronic fatigue and limited sleepiness with an Griffin score of 3. He has hypertension hyperlipidemia and she is undergoing a CPAP titration study. Pertinent physical findings Height is 5 feet and 8 inches with a weight of 225 and a body mass index of 34.2 Technical description The patient was studied using a standard complex polysomnography protocol that included recording of the Lead II EKG, Central, occipital and frontal EEG, right and left outer canthus EOG, submental EMG, right and left anterior tibialis EMG, respiratory airflow by thermocouple and or pressure/flow transducer, respiratory efforts by abdominal and thoracic PVDF belts, oxygen saturation by cable oximetry. Position by observation synchronized the PSG. Equipment used: [employer]. Stepwise CPAP titration was done to the mid all obstructive respiratory events Sleep architecture The total recording duration was 391.5 minutes. The total sleep time was 2 4.5 minutes. The wake after sleep onset time was 121.0 minutes. Overall sleep efficiency was 52.2%. Latency to sleep onset was 72 minutes and latency to REM sleep was 216.0 minutes. The sleep architecture was characterized by 7.6% stage I, 90% stage II, 0% stage III, and a total of 5.9% REM sleep. The total arousal index was 3.2 Respiratory summary The patient was started on CPAP therapy, initially at a pressure of 7 cm of water and the pressure was gradually creased by increments of 1 cm to reach a maximum CPAP pressure of 10 cm of water. This was successful titration. There was completed ablation of the obstructive respiratory events at the very CPAP pressures utilized. Noted the patient was studied and supine and nonsupine body position. The patient encountered only brief REM sleep. Based on this, the patient will be given an APAP machine pressures of 5/10 cm of water with close follow-up. No significant oxygen desaturations with the various CPAP pressures utilize during the titration. This was successful titration. Sleep continuity summary A total of 11 arousals were noted with an index of 3.2. Respiratory arousal index was 0. Noted the patient had a prolonged latency for sleep onset Periodic limb movement summary No significant pelvic movement identified Cardiac summary Average heart rate was 59 with a minimum heart rate of 56 and a maximum heart of 67 Assessment Obstructive sleep apnea moderate in severity with an AHI of 22 and the patient underwent a successful CPAP titration. Plan Initiate CPAP therapy and the patient will be given an APAP machine is with a pressures of 5/10 cm of water with a C-Flex of 3. The patient will be provided an AirFit P10 medium size nasal pillow. Encourage weight loss. Optimize sleep hygiene measures. Maintain regular sleep schedule. See me back in the office in 30 to 90 days to assess clinical response and compliancy. Will continue to follow make further adjustments based on the patient's clinical response.
== END 2024-02-20 05:25 | disposition home or self-care (01) ==
LOC: 3 N SLEEP 19:48
PROVIDERS: ATTEND Internal Medicine Critical Care Medicine
CPT/HCPCS: 95811

== ENCOUNTER → 2024-02-22 | Outpatient (CLI) | payer MEDICARE, OTHER ==
[2024-02-22 15:22] LABS: ALT 30 U/L (10-49); AST 24 U/L (14-35); Albumin 4.7 g/dL (3.8-4.9); Albumin/Globulin Ratio 1.96 Ratio (1.60-3.17); Alkaline Phosphatase 100 U/L (41-126); BUN/Creat Ratio 14.67 Ratio (12.00-20.00); Blood Urea Nitrogen 13.2 mg/dL (9.0-27.0); Calcium 10.3 mg/dL (8.7-10.3); Carbon Dioxide 25.4 mmol/L (21.6-31.8); Chloride 101 mmol/L (96-109); Chol/HDL Ratio 3.36 Ratio; Globulin 2.4 g/dL (1.6-3.3); Glucose 98 mg/dL (70-110); LDL Cholesterol,Calculated 66.8 mg/dL (0.0-131.0); Potassium 4.1 mmol/L (3.5-5.5); Sodium 139 mmol/L (135-145); Total Bilirubin 0.6 mg/dL (0.3-1.2); Total Protein 7.1 g/dL (6.2-8.2)
--- NOTE | 2024-02-28 13:33 | P.PCN ---
Date of Procedure: 02/19/24 Operative Findings: CPAP titration report Date of service is 02/19/2024 Pertinent history This patient was diagnosed having obstructive sleep apnea, moderate in severity with an AHI of 22 with the lowest pulse ox of 85%. The patient has chronic fatigue and limited sleepiness with an [place] score of 3. He has hypertension hyperlipidemia and she is undergoing a CPAP titration study. Pertinent physical findings Height is 5 feet and 8 inches with a weight of 225 and a body mass index of 34.2 Technical description The patient was studied using a standard complex polysomnography protocol that included recording of the Lead II EKG, Central, occipital and frontal EEG, right and left outer canthus EOG, submental EMG, right and left anterior tibialis EMG, respiratory airflow by thermocouple and or pressure/flow transducer, respiratory efforts by abdominal and thoracic PVDF belts, oxygen saturation by cable oximetry. Position by observation synchronized the PSG. Equipment used: Liquid Bronze. Stepwise CPAP titration was done to the mid all obstructive respiratory events Sleep architecture The total recording duration was 391.5 minutes. The total sleep time was 2 4.5 minutes. The wake after sleep onset time was 121.0 minutes. Overall sleep efficiency was 52.2%. Latency to sleep onset was 72 minutes and latency to REM sleep was 216.0 minutes. The sleep architecture was characterized by 7.6% stage I, 90% stage II, 0% stage III, and a total of 5.9% REM sleep. The total arousal index was 3.2 Respiratory summary The patient was started on CPAP therapy, initially at a pressure of 7 cm of water and the pressure was gradually creased by increments of 1 cm to reach a maximum CPAP pressure of 10 cm of water. This was successful titration. There was completed ablation of the obstructive respiratory events at the very CPAP pressures utilized. Noted the patient was studied and supine and nonsupine body position. The patient encountered only brief REM sleep. Based on this, the patient will be given an APAP machine pressures of 5/10 cm of water with close follow-up. No significant oxygen desaturations with the various CPAP pressures utilize during the titration. This was successful titration. Sleep continuity summary A total of 11 arousals were noted with an index of 3.2. Respiratory arousal index was 0. Noted the patient had a prolonged latency for sleep onset Periodic limb movement summary No significant pelvic movement identified Cardiac summary Average heart rate was 59 with a minimum heart rate of 56 and a maximum heart of 67 Assessment Obstructive sleep apnea moderate in severity with an AHI of 22 and the patient underwent a successful CPAP titration. Plan Initiate CPAP therapy and the patient will be given an APAP machine is with a pressures of 5/10 cm of water with a C-Flex of 3. The patient will be provided an AirFit P10 medium size nasal pillow. Encourage weight loss. Optimize sleep hygiene measures. Maintain regular sleep schedule. See me back in the office in 30 to 90 days to assess clinical response and compliancy. Will continue to follow make further adjustments based on the patient's clinical response.
== END | disposition home or self-care (01) ==
LOC: LABWHC1 10:35
PROVIDERS: ATTEND Internal Medicine Interventional Cardiology
DX: E78.2 Mixed hyperlipidemia
CPT/HCPCS: 36415; 80053; 80061